=== PATIENT | female | born 1970 | race Two or more races ===

== ENCOUNTER → 2020-02-19 | Outpatient (CLI) | payer OTHER ==
--- NOTE | 2020-02-19 09:40 | RAD ---
Examination: US GUID NDL PLACE/ASPI/BX, DIGITAL DIAGNOSTIC LT History: Left breast palpable mass Comparison/Correlation: Prior outside ultrasound examination of the left breast performed in January 2020. Findings: Risks, benefits, and alternatives regarding ultrasound-guided biopsy of the left breast mass at the 9:00 region 1 cm from the nipple were discussed with the patient and informed consent was obtained. Cleansing with ChloraPrep at the anticipated site of needle placement was performed. Sterile draping, sterile gel, and sterile probe cover is were utilized. Approximately 9 of 1 percent lidocaine was administered subcutaneously and along the expected course of the needle tracks. Incidental note is made of the lesion of interest being hyperechoic with a hypoechoic center. It is located deep to the skin. It measures 0.74 cm x 0.58 cm tall by 0.82 cm. The patient reported tenderness at the site prior to lidocaine administration. Incision was made with a scalpel. Medial approach was utilized. Introducer was placed under ultrasound guidance. 12-gauge core biopsy was placed with the bevel exposed. A total of 4 samples were acquired under ultrasound guidance. Biopsy clip marker was then placed under ultrasound guidance. Left MLO and left CC images were then acquired. Images were reviewed on a mammographic workstation. Biopsy clip marker is in place at approximately the 9:00 region 1 cm from the nipple. No hematoma identified. Scattered fibroglandular densities are present. Impression: Successful left breast core needle biopsy under ultrasound guidance. Incidental note is made of the lesion of interest having a hyperechoic appearance as compared to the previous outside ultrasound exam. The possibility is raised that this finding represents a sebaceous cyst. Electronically signed by: Karthik Heard MD (02/19/2020 9:38 AM) [id number]
--- NOTE | 2020-02-20 16:06 | PATHOLOGY ---
[facility] Accession Number: [id number] . 01 Material submitted: . breast - LEFT BREAST MASS 9:00 1CMFN .52CM. Modifiers: left, 9:00 . 01 Clinical history: . Left breast mass . 02 Diagnosis: Breast tissue, left breast mass 9:00 needle biopsies: - Chronic and granulomatous mastitis, focal. (JPM:mayi; 02/20/2020) QMS 02/20/2020 1019 Local . 02 Comment: Sections of the left breast mass at 9:00 needle biopsies reveal segments of breast tissue showing focal chronic and granulomatous inflammation. Within the foci of inflammation there are focal cholesterol clefts and a few multinucleated giant cells. There are small foci of fat necrosis adjacent to the foci of inflammation. There is no atypia or evidence of malignancy. (JPM:mayi; 02/20/2020) . 02 Electronically signed: . Farzad Hoover MD, Pathologist NPI- [id number] . 01 Gross description: . The specimen is received in formalin, labeled "Carolyn Tien, left breast". The specimen is additionally labeled on the requisition as, "left breast mass 9:00 1 cm from nipple". Received are multiple needle cores of fibrofatty tissue measuring 1.6 x 1.0 x 0.2 cm in aggregate dimensions. The specimen is submitted entirely in cassettes A1 through A3. The cold ischemic time is less than 1 minute. The total formalin fixation time is 13 hours. (CAA; 02/19/2020) QAC/QAC 02/19/2020 1451 Local . 02 Pathologist provided ICD-10: N61.0 . 02 CPT . 790835 Specimen Comment: A courtesy copy of this report has been sent to [phone], [phone] Specimen Comment: [id number] Specimen Comment: Report sent to / DR MCKEON [facility]: [facility] [address] [id number] MD Raul Lopez MD Phone: [phone] Performed at: 02 [facility] [address] [place], [place] [id number] MD Farzad Hoover MD Phone: [phone]
== END | disposition home or self-care (01) ==
LOC: US 08:53
PROVIDERS: ATTEND Nurse Practitioner Women's Health
DX: N63.20 Unspecified lump in the left breast, unspecified quadrant (principal); N60.12 Diffuse cystic mastopathy of left breast
CPT/HCPCS: 19083; 77065; 88305; C1713; 76942